=== PATIENT | male | born 1950 | race Caucasian/White ===

== ENCOUNTER 2021-02-17 07:14 | Inpatient (IN) | payer MEDICARE, OTHER ==
[~2021-02-17] VITALS: Ht 167.6 cm; Wt 83.0 kg
[2021-02-17] MEDS: InsuLIN REG 1unit/0.01ml Soln (100units/ml) SC SCH ×2 (01:00→17:00)
[2021-02-17] MEDS: ACCU-CHEK COMFORT CURVE STRIP VI SCH ×2 (01:00→17:00)
[2021-02-17 08:23] LABS: Basophils # (auto) 0.1 10 ^3/uL (0-0.2); Basophils % (auto) 0.6 % (0.0-2.0); Eosinophils # (auto) 0.2 10 ^3/uL (0-0.8); Eosinophils % (auto) 1.5 % (0.0-7.0); Hematocrit 48.3 % (41.0-53.0); Hemoglobin 16.5 g/dL (13.5-17.5); Lymphocytes # (auto) 0.6 10 ^3/uL (0.4-5.4); Lymphocytes % (auto) 5.6 % (10.0-50.0); Mean Corpuscular Hemoglobin 30.7 pg (28.0-32.0); Mean Corpuscular Hgb Conc. 34.2 g/dL (32.0-36.0); Monocytes # (auto) 0.4 10 ^3/uL (0-1.3); Monocytes % (auto) 3.7 % (0.0-12.0); Neutrophils % (auto) 88.6 % (37.0-80.0); Red Blood Cells 5.37 10^6/uL (4.5-5.90); Red Cell Distribution Width 14.4 % (11.8-14.3); White Blood Cell 11.3 10^3/uL (4.4-10.8)
[2021-02-17 08:40] LABS: Alanine Aminotransferase 14 U/L (16-61); Albumin 3.4 g/dL (3.4-5.0); Anion Gap 7 (5-15); Blood Urea Nitrogen 8 mg/dL (7-18); Calcium 8.3 mg/dL (8.5-10.1); Carbon Dioxide 26 mmol/L (21-32); Chloride 107 mmol/L (98-107); Glucose 243 mg/dL (74-106); Potassium 3.2 mmol/L (3.5-5.1); Sodium 140 mmol/L (136-145)
[2021-02-17 08:45] LABS: Alkaline Phosphatase 88 U/L (45-117); Aspartate Aminotransferase 7 U/L (15-37); BUN/Creatinine Ratio 13.3; Bilirubin, Total 0.6 mg/dL (0.2-1.0); GFR African American 171 mL/min; GFR Non-African American 141 mL/min; Total Protein 7.3 g/dL (6.4-8.2)
[2021-02-17] MEDS ORDERED: FUROSEMIDE 40 MG/4 ML VIAL IV ONE (10:00)
[2021-02-17 11:58] LABS: Urine Bacteria MANY /hpf (None Seen); Urine Blood Negative /uL (Negative); Urine Mucus FEW (None Seen); Urine Specific Gravity 1.009 (1.001-1.035); Urine WBC 12 /hpf (0 - 3)
[2021-02-17] MEDS ORDERED: POTASSIUM EFFERVESENT TAB 25 MEQ PO ONE (12:00)
[2021-02-17] MEDS ORDERED: DEXTROSE (50%) 50ML SYRG IV PRN (14:30)
[2021-02-17] MEDS ORDERED: HYDROcodone-ACET 5/325MG TAB PO PRN (14:30)
[2021-02-17] MEDS ORDERED: ACETAMINOPHEN 500 MG TAB PO PRN (14:30)
[2021-02-17] MEDS ORDERED: ONDANSETRON HCL 4 MG/2 ML VIAL IV PRN (14:30)
[2021-02-17] MEDS ORDERED: MORPHINE SULF INJ 2 MG/ML SYRINGE 1ML IV PRN ×2 (14:30)
[2021-02-17] MEDS ORDERED: NITROGLYCERIN 0.4 MG SL TAB SL PRN (14:30)
[2021-02-17] MEDS: ALBUTEROL SULF 2.5 MG/0.5ML(0.5%) NEB SOLN NEB SCH (22:27)
[2021-02-17] MEDS: IPRATROPIUM BROM 0.5 MG/2.5ML INH SOL NEB SCH (22:27)
[2021-02-17] MEDS: BUDESONIDE (INHALATION) 0.5 MG/2 ML NEB NEB SCH (22:28)
[2021-02-18] MEDS: InsuLIN REG 1unit/0.01ml Soln (100units/ml) SC SCH ×4 (06:33→22:00)
[2021-02-18] MEDS: ACCU-CHEK COMFORT CURVE STRIP VI SCH ×4 (06:33→22:28)
[2021-02-18] MEDS: ALBUTEROL SULF 2.5 MG/0.5ML(0.5%) NEB SOLN NEB SCH ×3 (07:06→19:25)
[2021-02-18] MEDS: IPRATROPIUM BROM 0.5 MG/2.5ML INH SOL NEB SCH ×3 (07:06→19:25)
[2021-02-18] MEDS: BUDESONIDE (INHALATION) 0.5 MG/2 ML NEB NEB SCH ×2 (07:06→19:25)
[2021-02-18 08:10] LABS: Basophils # (auto) 0.1 10 ^3/uL (0-0.2); Eosinophils # (auto) 0.3 10 ^3/uL (0-0.8); Eosinophils % (auto) 3.1 % (0.0-7.0); Hematocrit 48.3 % (41.0-53.0); Hemoglobin 16.8 g/dL (13.5-17.5); Lymphocytes # (auto) 1.6 10 ^3/uL (0.4-5.4); Lymphocytes % (auto) 16.8 % (10.0-50.0); Mean Corpuscular Hemoglobin 31.4 pg (28.0-32.0); Mean Corpuscular Hgb Conc. 34.8 g/dL (32.0-36.0); Mean Corpuscular Volume 90.1 fL (80.0-100.0); Monocytes # (auto) 0.7 10 ^3/uL (0-1.3); Monocytes % (auto) 6.7 % (0.0-12.0); Neutrophils % (auto) 72.4 % (37.0-80.0); Nucleated Red Blood Cells % 0.2 %; Red Blood Cells 5.36 10^6/uL (4.5-5.90); Red Cell Distribution Width 14.5 % (11.8-14.3); White Blood Cell 9.7 10^3/uL (4.4-10.8)
[2021-02-18 08:20] LABS: BUN/Creatinine Ratio 13.8; Calcium 9.2 mg/dL (8.5-10.1); Potassium 4.2 mmol/L (3.5-5.1)
[2021-02-18] MEDS ORDERED: AZITHROMYCIN 500MG/ 250ML 250 ML IV SCH (10:00)
[2021-02-18] MEDS: cefTRIAXone 1GM/50ML D5W 50 ML IV SCH (10:21)
[2021-02-18 13:24] VITALS: BP 161/82
[2021-02-18] MEDS ORDERED: LISINOPRIL 20 MG TAB PO ONE (15:45)
[2021-02-18] MEDS ORDERED: NICOTINE 21MG/24 HR TOPICAL PATCH TD ONE (15:45)
[2021-02-18] MEDS ORDERED: ASPirin-EC 81 mg tab PO ONE (15:45)
[2021-02-18] MEDS ORDERED: LORazepam 2MG/ML-1ML VIAL IV ONE (15:45)
[2021-02-18] MEDS ORDERED: LORazepam 2MG/ML-1ML VIAL IV PRN (16:30)
[2021-02-18 17:00] VITALS: BP 141/73
[2021-02-18 22:00] VITALS: BP 143/95
[2021-02-18] MEDS: ATORVASTATIN 20 MG TAB PO SCH (22:27)
[2021-02-18] MEDS: FAMOTIDINE 20 MG TAB PO SCH (22:28)
[2021-02-19 03:13] VITALS: BP 143/95
[2021-02-19 05:00] VITALS: BP 140/64
[2021-02-19 05:42] LABS: Basophils # (auto) 0.1 10 ^3/uL (0-0.2); Eosinophils # (auto) 0.4 10 ^3/uL (0-0.8); Eosinophils % (auto) 4.9 % (0.0-7.0); Hematocrit 46.8 % (41.0-53.0); Hemoglobin 16.3 g/dL (13.5-17.5); Lymphocytes # (auto) 1.6 10 ^3/uL (0.4-5.4); Lymphocytes % (auto) 19.3 % (10.0-50.0); Mean Corpuscular Hemoglobin 31.3 pg (28.0-32.0); Mean Corpuscular Hgb Conc. 34.7 g/dL (32.0-36.0); Monocytes # (auto) 0.6 10 ^3/uL (0-1.3); Neutrophils # (auto) 5.8 10 ^3/uL (1.6-8.6); Neutrophils % (auto) 67.8 % (37.0-80.0); Red Cell Distribution Width 14.6 % (11.8-14.3); White Blood Cell 8.5 10^3/uL (4.4-10.8)
[2021-02-19 06:02] LABS: Calcium 8.8 mg/dL (8.5-10.1); Magnesium 2.2 mg/dL (1.6-2.6); Potassium 3.6 mmol/L (3.5-5.1)
[2021-02-19 06:07] LABS: BUN/Creatinine Ratio 15.7
[2021-02-19] MEDS: ALBUTEROL SULF 2.5 MG/0.5ML(0.5%) NEB SOLN NEB SCH ×3 (06:39→19:30)
[2021-02-19] MEDS: BUDESONIDE (INHALATION) 0.5 MG/2 ML NEB NEB SCH ×2 (06:39→19:31)
[2021-02-19] MEDS: IPRATROPIUM BROM 0.5 MG/2.5ML INH SOL NEB SCH ×3 (06:39→19:30)
[2021-02-19] MEDS: ACCU-CHEK COMFORT CURVE STRIP VI SCH ×4 (06:44→22:21)
[2021-02-19] MEDS: InsuLIN REG 1unit/0.01ml Soln (100units/ml) SC SCH ×4 (06:44→22:25)
[2021-02-19] MEDS: ENOXAPARIN SOD 40 MG/0.4 ML SYRINGE SC SCH (08:40)
[2021-02-19] MEDS: cefTRIAXone 1GM/50ML D5W 50 ML IV SCH (08:40)
[2021-02-19] MEDS: LISINOPRIL 20 MG TAB PO SCH (08:41)
[2021-02-19] MEDS: ASPirin-EC 81 mg tab PO SCH (08:41)
[2021-02-19] MEDS: FAMOTIDINE 20 MG TAB PO SCH ×2 (08:41→22:18)
[2021-02-19] MEDS: NICOTINE 21MG/24 HR TOPICAL PATCH TD SCH (08:41)
[2021-02-19 09:00] VITALS: BP 148/81
[2021-02-19] MEDS: hydrALAZINE HCL 20 MG/ML VL IV PRN (11:46)
[2021-02-19 13:00] VITALS: BP 158/70
[2021-02-19 17:00] VITALS: BP 144/79
[2021-02-19 22:00] VITALS: BP 144/84
[2021-02-19] MEDS: ATORVASTATIN 20 MG TAB PO SCH (22:18)
[2021-02-20 05:00] VITALS: BP 155/83
[2021-02-20] MEDS: hydrALAZINE HCL 20 MG/ML VL IV PRN (05:14)
[2021-02-20] MEDS: ACCU-CHEK COMFORT CURVE STRIP VI SCH ×4 (06:56→22:00)
[2021-02-20] MEDS: InsuLIN REG 1unit/0.01ml Soln (100units/ml) SC SCH ×4 (06:56→22:00)
[2021-02-20] MEDS: ASPirin-EC 81 mg tab PO SCH ×2 (08:18→10:00)
[2021-02-20] MEDS: cefTRIAXone 1GM/50ML D5W 50 ML IV SCH (08:18)
[2021-02-20] MEDS: LISINOPRIL 20 MG TAB PO SCH (08:19)
[2021-02-20] MEDS: FAMOTIDINE 20 MG TAB PO SCH ×2 (08:20→22:00)
[2021-02-20 09:00] VITALS: BP 187/93
[2021-02-20 09:39] LABS: INR 1.1 (0.9-1.15); Partial Thromboplastin Time 30.5 sec (23.0-31.2)
[2021-02-20] MEDS: ENOXAPARIN SOD 40 MG/0.4 ML SYRINGE SC SCH (10:00)
[2021-02-20] MEDS: NICOTINE 21MG/24 HR TOPICAL PATCH TD SCH (10:07)
[2021-02-20] MEDS: IPRATROPIUM BROM 0.5 MG/2.5ML INH SOL NEB SCH ×3 (10:51→19:05)
[2021-02-20] MEDS: ALBUTEROL SULF 2.5 MG/0.5ML(0.5%) NEB SOLN NEB SCH ×3 (10:51→19:05)
[2021-02-20] MEDS: BUDESONIDE (INHALATION) 0.5 MG/2 ML NEB NEB SCH ×2 (10:52→19:05)
[2021-02-20] MEDS: cloNIDine HCL 0.1 MG TAB PO PRN (12:00)
[2021-02-20 12:40] VITALS: BP 169/80
[2021-02-20 17:00] VITALS: BP 124/76
[2021-02-20 22:00] VITALS: BP 141/72
[2021-02-20] MEDS: ATORVASTATIN 20 MG TAB PO SCH (22:00)
[2021-02-21] VITALS (8 sets, daily range): BP systolic 142–156; BP diastolic 72–85
[2021-02-21] MEDS: cloNIDine HCL 0.1 MG TAB PO PRN (05:24)
[2021-02-21] MEDS: ACCU-CHEK COMFORT CURVE STRIP VI SCH ×4 (06:05→22:00)
[2021-02-21] MEDS: InsuLIN REG 1unit/0.01ml Soln (100units/ml) SC SCH ×4 (06:05→22:00)
[2021-02-21] MEDS: BUDESONIDE (INHALATION) 0.5 MG/2 ML NEB NEB SCH ×2 (07:30→19:00)
[2021-02-21] MEDS: IPRATROPIUM BROM 0.5 MG/2.5ML INH SOL NEB SCH ×3 (07:30→19:00)
[2021-02-21] MEDS: ALBUTEROL SULF 2.5 MG/0.5ML(0.5%) NEB SOLN NEB SCH ×3 (07:30→18:59)
[2021-02-21] MEDS: ASPirin-EC 81 mg tab PO SCH (09:36)
[2021-02-21] MEDS: cefTRIAXone 1GM/50ML D5W 50 ML IV SCH ×2 (09:36→09:38)
[2021-02-21] MEDS: ENOXAPARIN SOD 40 MG/0.4 ML SYRINGE SC SCH (09:37)
[2021-02-21] MEDS: FAMOTIDINE 20 MG TAB PO SCH ×2 (09:37→21:13)
[2021-02-21] MEDS: NICOTINE 21MG/24 HR TOPICAL PATCH TD SCH (09:38)
[2021-02-21] MEDS: LISINOPRIL 20 MG TAB PO SCH (09:38)
[2021-02-21] MEDS ORDERED: MIDAZOLAM HCL 2MG/2ML 2ml VIAL (1mg/ml) IV ONE (13:15)
[2021-02-21] MEDS ORDERED: MIDAZOLAM HCL 5 MG/ML-1ML VIAL IV ONE (13:45)
[2021-02-21] MEDS ORDERED: diphenhdrAMINE HCL 50 MG/1 ML VL ONE (14:17)
[2021-02-21] MEDS: ATORVASTATIN 20 MG TAB PO SCH (21:13)
[2021-02-21] MEDS: hydrALAZINE HCL 20 MG/ML VL IV PRN (21:29)
[2021-02-22 05:00] VITALS: BP 160/97
[2021-02-22] MEDS: InsuLIN REG 1unit/0.01ml Soln (100units/ml) SC SCH ×2 (06:11→11:30)
[2021-02-22] MEDS: cloNIDine HCL 0.1 MG TAB PO PRN (06:11)
[2021-02-22] MEDS: IPRATROPIUM BROM 0.5 MG/2.5ML INH SOL NEB SCH (06:38)
[2021-02-22] MEDS: ALBUTEROL SULF 2.5 MG/0.5ML(0.5%) NEB SOLN NEB SCH (06:38)
[2021-02-22] MEDS: BUDESONIDE (INHALATION) 0.5 MG/2 ML NEB NEB SCH (06:38)
[2021-02-22] MEDS: ACCU-CHEK COMFORT CURVE STRIP VI SCH ×2 (07:01→11:30)
[2021-02-22 09:00] VITALS: BP 150/73
[2021-02-22] MEDS: FAMOTIDINE 20 MG TAB PO SCH (09:30)
[2021-02-22] MEDS: NICOTINE 21MG/24 HR TOPICAL PATCH TD SCH (09:30)
[2021-02-22] MEDS: LISINOPRIL 20 MG TAB PO SCH (09:30)
[2021-02-22] MEDS: ENOXAPARIN SOD 40 MG/0.4 ML SYRINGE SC SCH (09:30)
[2021-02-22] MEDS: ASPirin-EC 81 mg tab PO SCH (09:30)
[2021-02-22 10:34] VITALS: BP 135/82
== END 2021-02-22 13:08 | disposition home or self-care (01) | DRG 189 ==
LOC: EDBD 07:14 → ER 07:14 → TELE 14:24 → TELE-WESTW 02-18 12:49
PROVIDERS: ADMIT Nurse Practitioner Acute Care; ATTEND Family Medicine
PROC: B245ZZ4 Ultrasonography of Left Heart, Transesophageal (ICD-10-PCS; principal; 2021-02-21)
DX: J96.01 Acute respiratory failure with hypoxia (principal); J44.1 Chronic obstructive pulmonary disease with (acute) exacerbation; R65.10 Systemic inflammatory response syndrome (SIRS) of non-infectious origin without acute organ dysfunction; I11.0 Hypertensive heart disease with heart failure; Z20.822 Contact with and (suspected) exposure to COVID-19; N30.90 Cystitis, unspecified without hematuria; E66.9 Obesity, unspecified; E78.00 Pure hypercholesterolemia, unspecified; E87.6 Hypokalemia; F17.210 Nicotine dependence, cigarettes, uncomplicated; E11.65 Type 2 diabetes mellitus with hyperglycemia; I35.8 Other nonrheumatic aortic valve disorders; I70.0 Atherosclerosis of aorta; J32.9 Chronic sinusitis, unspecified; Z79.82 Long term (current) use of aspirin; Z79.899 Other long term (current) drug therapy; Z91.19 Patient's noncompliance with other medical treatment and regimen
CPT/HCPCS: 36415; 70450; 70551; 71045; 71250; 80048; 80053; 80061; 81001; 82306; 82962; 83036; 83735; 84154; 84443; 84484; 85025; 85379; 85610; 85730; 86850; 86900; 86901; 87086; 87426; 93005; 93306; 93312; 93886; 94640; 96372; 96374; 96375; 97163; G0378; J0696; J1815; J2250; J2405